=== PATIENT | male | born 1975 | race Caucasian/White ===

== ENCOUNTER 2019-01-31 09:24 | Emergency (ER) | payer BC ==
[~2019-01-31] VITALS: Ht 177.8 cm; Wt 89.5 kg
[2019-01-31 09:33] VITALS: TEMP 99.3
[2019-01-31 10:16] LABS: HEMATOCRIT 51.7 % (42.0-52.0); MEAN CELL VOLUME 100 fl (80.0-100.0); MEAN CORPUSCULAR HGB CONC 36 g/dl (33.0-37.0); MEAN PLATELET VOLUME 8.4 fl (7.4-10.4); PLATELET COUNT 240 K/mm3 (130-400); RED BLOOD COUNT 5.19 M/mm3 (4.20-5.60); REDCELL DISTRIBUTION WIDTH-CV 12.5 % (11.5-14.5)
[2019-01-31 10:17] LABS: HEMOGLOBIN 18.4 g/dl (13.5-18.0); MEAN CORPUSCULAR HEMOGLOBIN 35 pg (27.0-31.0)
[2019-01-31 10:24] LABS: ALANINE AMINOTRANSFERASE 82 U/L (21-72); ALBUMIN 4.4 gm/dL (3.5-5.0); ALKALINE PHOSPHATASE 226 U/L (50-136); ANION GAP 13 mmol/L (7-16); AST,SGOT 57 U/L (15-37); BILIRUBIN,TOTAL 0.6 mg/dL (0.0-1.0); BLOOD UREA NITROGEN 9 mg/dL (9-20); CALCIUM 10.6 mg/dL (8.4-10.2); CARBON DIOXIDE 24 mmol/L (22-30); CHLORIDE 104 mmol/L (98-107); CREATININE, serum 0.72 (0.66-1.25); GLUCOSE 95 mg/dL (74-106); LIPASE 76 U/L (23-300); POTASSIUM 4.6 mmol/L (3.4-5.0); SODIUM 141 mmol/L (137-145); TOTAL PROTEIN 7.8 gm/dL (6.4-8.2)
[2019-01-31 10:33] LABS: BAND 7 % (0-10); EOSINOPHIL 3 % (0-4); LYMPHOCYTE 5 % (20.0-51.0); NEUTROPHILS 69 % (42.0-75.2); PLATELET ESTIMATE NORMAL (NORMAL)
[2019-01-31 10:36] LABS: TROPONIN-I < 0.012 ng/mL (0.000-0.035)
[2019-01-31] MEDS ORDERED: KEPPRA XR500 MG PO (10:48)
[2019-01-31] MEDS ORDERED: LAMICTAL200 MG PO (10:49)
[2019-01-31] MEDS ORDERED: CALCIUM CARBON650 M2 (10:50)
[2019-01-31] MEDS ORDERED: MULTIPLE VITAMI1 CAP PO (10:50)
[2019-01-31] MEDS ORDERED: PRINIVIL10 MG PO (10:50)
[2019-01-31] MEDS ORDERED: VIMPAT200 MG PO (10:51)
[2019-01-31] MEDS ORDERED: LEVAQUIN 750MG750 M1 PO (11:37)
[2019-01-31 12:02] VITALS: BP 120/87; PULSE 91
== END 2019-01-31 12:08 | disposition home or self-care (01) ==
LOC: COL.ER 09:24
PROVIDERS: Emergency Medicine
DX: R09.1 Pleurisy (principal); I10 Essential (primary) hypertension; G40.909 Epilepsy, unspecified, not intractable, without status epilepticus; F10.239 Alcohol dependence with withdrawal, unspecified; F17.210 Nicotine dependence, cigarettes, uncomplicated
CPT/HCPCS: J2060; J3010; J3475; J7030